=== PATIENT | female | born 1990 | race Caucasian/White ===

== ENCOUNTER 2023-11-08 18:03 | Emergency (ER) | payer OTHER, SELFPAY ==
--- NOTE | 2023-11-08 18:26 | ED_ITS ---
HPI - Dental/Oral General Chief complaint: Dental/Oral Stated complaint: tooth pain Time Seen by Provider: 11/08/23 18:34 Source: patient Mode of arrival: ambulatory Limitations: no limitations History of Present Illness ED Provider: Brea Alberto PA-C HPI Narrative: 33-year-old female presents the ER for evaluation of left lower molar pain for the last several days. she reports having an infected root canal. She has an appointment with a dentist on Friday. She has completing a [place] and just started on clindamycin yesterday. She reports taking around the clock Motrin and Tylenol for the pain with minimal relief. She was told if she wanted to get her tooth pulled to come to the emergency department. She is here today asking for tooth extraction due to severe pain. She denies any jaw swelling, neck swelling, difficulty speaking, opening her mouth or fevers. MD Complaint: tooth pain Location: Tooth # (19) Onset (ago): day(s) Duration: constant Severity: severe Severity scale (1-10): 10 Relieving factors: NSAIDs and prescription analgesics Exacerbating factors: chewing Treatment prior to arrival: oral analgesic Related Data Previous Rx's ?Medication ?Instructions ?Recorded ibuprofen 800 mg tablet 800 mg PO Q6H PRN pain #14 tabs 11/08/23 morphine 15 mg immediate release 15 mg PO Q6H PRN pain #10 tabs 11/08/23 tablet Allergies Allergy/AdvReac Type Severity Reaction Status Date / Time Penicillins Allergy Unknown Verified 11/08/23 18:31 Review of Systems Review of Systems: Yes all other systems are reviewed and are negative PMFSH Social History Social History Advance Directives: No Advance Directives Information Provided: No Physical Exam Vital Signs: Vital Signs: Last Vital Signs Temp 98.5 F 11/08/23 18:46 Pulse 98 11/08/23 18:46 Resp 18 11/08/23 18:46 BP 135/94 H 11/08/23 18:46 Pulse Ox 98 11/08/23 18:46 O2 Del Method Room Air 11/08/23 18:46 BMI result Body Mass Index 24.0 Appearance: Alert. Oriented X3. No acute distress. HEENT: normal inspection. no neck swelling, no jaw swelling. no trismus. moist mucus membranes. Second left lower molar with significant tenderness. Mild associated gingival swelling and tenderness, no fluctuance. CVS: Normal heart rate and rhythm. Pulses normal. Respiratory: No respiratory distress. Skin: Skin warm and dry. Normal skin color. Normal skin turgor. No rashes. Extremities: Normal inspection x4, no joint swelling Neuro: Oriented X 3. Grossly normal, nonfocal Medical Decision Making Medical Decision Making MDM Narrative: 33-year-old female presents the ER for left lower dental pain that started a few days ago. Pain is with a tooth that she had a root canal and crown on. She recently had x-rays at a dentist's office showing infection. She is on her final day of azithromycin and had clindamycin added yesterday. She has an amoxicillin allergy. She reports significant sensitivity of her left lower molar, no associated gingival swelling or tenderness. No appreciated abscess on exam. No neck swelling. No difficulty swallowing or opening her jaw. She is tearful and was hopeful for tooth extractions today in the emergency department. Patient was counseled on inability to do so in the emergency room. No emergent need at this time. She does have an appointment with her dentist on Friday. She is taking Tylenol and Motrin with minimal effect. Will prescribe short course of opiates for severe pain. She was counseled on return precautions and is stable for discharge home Differential Diagnosis Differential Diagnoses: The differential diagnosis associated with the presentation includes dental abscess, infected root canal, toothache, dental caries, cracked tooth Tests considered The following testing was considered but not selected: Considered CT scan of the face however there is no clinical evidence severe abscess at this time Prescription Management I considered prescription management with: Pain Medication and Antibiotic Critical Care Time Critical Care Time Critical Care Time: No Discharge Plan Discharge Clinical Impression: Toothache Patient Disposition: Home, Self-Care Instructions: Toothache (ED) Additional Instructions: Take the prescribed anti-inflammatory as directed. Take it with food to ease upset stomach. Continue your previously prescribed oral antibiotic. Take the prescribed morphine as needed for severe pain only. Do not drive after taking this medication. Follow-up with your dentist as scheduled on Friday, try calling on Friday to see if they can get you in emergently. If you develop new or worsening symptoms call 911 or come back to the ER for further evaluation. Prescriptions: New morphine 15 mg tablet 15 mg PO Q6H PRN (Reason: pain) Qty: 10 0RF Rx Instructions: Partial Fill upon patient request. ibuprofen 800 mg tablet 800 mg PO Q6H PRN (Reason: pain) Qty: 14 0RF Stand Alone Forms: Work/School Release Interventions: ED Discharge Assessment Last Done: 11/08/23 18:46 Discharge Date/Time: 11/08/23 18:47 Print Language: [place]
[2023-11-08 18:27] VITALS: BP 135/94; PULSE 98; RESP 18; TEMP 36.9; O2SAT 98; BMI 24.0
[2023-11-08 18:46] VITALS: BP 135/94; PULSE 98; RESP 18; TEMP 36.9; O2SAT 98
== END 2023-11-08 18:47 | disposition home or self-care (01) ==
LOC: HO.ED 18:41
PROVIDERS: Emergency Provider Student in an Organized Health Care Education/Training Program
DX: K08.89 Other specified disorders of teeth and supporting structures (principal)
CPT/HCPCS: 99282; 99283